=== PATIENT | female | born 1945 | race Caucasian/White ===

== ENCOUNTER → 2019-11-07 | Day surgery (SDC) | payer MEDICARE, OTHER ==
[2019-11-03 10:25] LABS: BASOPHILS # (AUTO) 0.1 (0.0-0.1); BASOPHILS % 1.4 % (0.0-1.0); EOSINOPHILS # (AUTO) 0.1 (0.0-0.4); EOSINOPHILS % 2.4 % (0.0-6.0); HEMOGLOBIN 13.5 g/dL (12.0-16.0); LYMPHOCYTES # (AUTO) 1.8 (1.0-3.2); LYMPHOCYTES % 34.9 % (18.0-39.1); MEAN CORPUSCULAR HEMOGLOBIN 29.3 pg (28-32); MEAN CORPUSCULAR HGB CONC 32.1 g/dL (31-35); MEAN CORPUSCULAR VOLUME 91.1 fL (81-99); MONOCYTES # (AUTO) 0.5 (0.2-0.8); MONOCYTES % 10.4 % (4.4-11.3); NEUTROPHILS # (AUTO) 2.5 (2.1-6.9); NEUTROPHILS % 50.5 % (38.7-80.0); PLATELET COUNT 249 x10e3/uL (140-360); RED BLOOD COUNT 4.61 x10e6/uL (3.6-5.1); RED CELL DISTRIBUTION WIDTH 14.3 % (11.7-14.4)
[2019-11-03 10:41] LABS: ALANINE AMINOTRANSFERASE 17 IU/L (0-55); ALBUMIN 3.8 g/dL (3.5-5.0); ALBUMIN/GLOBULIN RATIO 1.5 (0.8-2.0); ALKALINE PHOSPHATASE 100 IU/L (40-150); ANION GAP 11.4 mmol/L (8-16); BLOOD UREA NITROGEN 8 mg/dL (7-26); BUN/CREATININE RATIO 11 (6-25); CALCIUM 9.7 mg/dL (8.4-10.2); CARBON DIOXIDE 25 mmol/L (22-29); CHLORIDE 106 mmol/L (98-107); CREATININE, SERUM 0.76 mg/dL (0.57-1.11); EST GLOMERULAR FILTRATION RATE > 60 ML/MIN (60-); GLUCOSE 89 mg/dL (74-118); POTASSIUM 4.4 mmol/L (3.5-5.1); SODIUM 138 mmol/L (136-145)
--- NOTE | 2019-11-03 11:25 | Diagnostic Imaging Report ---
EXAMINATION: CHEST 2 VIEWS INDICATION: Pre-op. COMPARISON: None FINDINGS: TUBES and LINES: None. LUNGS: Lungs are well inflated. There is no evidence of pneumonia or pulmonary edema. Mild patchy bibasilar opacities, likely atelectasis. PLEURA: No pleural effusion or pneumothorax. HEART AND MEDIASTINUM: The cardiomediastinal silhouette is unremarkable. BONES AND SOFT TISSUES: No acute osseous abnormality. Bilateral breast implants. Mild degenerative changes of the visualized spine. Diffuse osteopenia. UPPER ABDOMEN: No free air under the diaphragm. IMPRESSION: No acute radiographic abnormality. Signed by: Dr. Ro Todd MD on 11/03/2019 11:22 AM
[~2019-11-07] MED LIST: ACETAMINOPHEN 1000 MG/100 ML IV ONE; BUPIVACAINE 0.5%/EPI 30 ML SDV INJ ONE; CEFAZOLIN SOD 1 GM/NS 50ML 100 ML IV ONE; DEXAMETHASONE SOD PHOS INJ 4 MG/ML VIAL ONE; ESTROGENS CONJUGATED VAGINAL CR 45 GM TUBE PV ONE; FENTANYL CITRATE/PF 100MCG/2 ML INJ ONE; GLYCOPYRROLATE INJ 0.2 MG/ML VIAL ONE; KETOROLAC TROMETHAMINE 30 MG/ML VIAL ONE; LIDOCAINE HCL 2% LOCAL INJ 5 ML SDV VIAL INJ ONE; LISINOPRIL10 MG PO; MIDAZOLAM HCL 2 MG/2 ML VIAL ONE; NEOSTIGMINE 1 MG/ML 10ML VIAL ONE; OMEPRAZOLE40 MG PO; ONDANSETRON HCL INJ 2MG/ML 2ML 2 MG/ML VIAL ONE; PROPOFOL IV EMULSION 10 MG/ML 20 ML VIAL ONE; ROCURONIUM BROMIDE 10 MG/ML 5ML VIAL ONE; SEVOFLURANE INHAL SOLN 250 ML PEN BTL ONE
[2019-11-07 11:30] VITALS: BP 110/63
--- OUTSIDE RECORDS SUMMARY | 2019-11-10 13:03 | XMS REPORT ---
Author Author [facility] Address Unknown Phone Unavailable Care Team Providers Care Service Coordinator Name Role Phone Zeus STEVENSON Unavailable Unavailable Problems This patient has no known problems. Allergies, Adverse Reactions, Alerts This patient has no known allergies or adverse reactions. Medications This patient has no known medications. Encounters Start Date/Time End Date/Time Encounter Type Admission Type Attending [facility] Care Facility Care Department Encounter ID 2019-04-08 19:30:00 2019-04-08 19:30:00 Outpatient [id number] Results Test Description Test Time Test Comments Text Results Atomic Results Result Comments CHEST 2 VIEWS 2019-11-03 11:19:00 [place] [id number] Patient Name: YARITZA TRIMBLE MR #: [id number] : 1945 Age/Sex: 74/F Req #: [id number] Adm Physician: Ordered by: MICHAEL STEVENSON MD Report #: [id number] Location: OR Room/Bed: Procedure: [id number] DX/CHEST 2 VIEWS Exam Date: 11/03/19 Exam Time: 1100 REPORT STATUS: Signed EXAMINATION: CHEST 2 VIEWS INDICATION: Pre-op. COMPARISON: None FINDINGS: TUBES and LINES: None. LUNGS: Lungs are well inflated. There is no evidence of pneumonia or pulmonary edema. Mild patchy bibasilar opacities, likely atelectasis. PLEURA: No pleural effusion or pneumothorax. HEART AND MEDIASTINUM: The cardiomediastinal silhouette is unremarkable. BONES AND SOFT TISSUES: No acute osseous abnormality. Bilateral breast implants. Mild degenerative changes of the visualized spine. Diffuse osteopenia. UPPER ABDOMEN: No free air under the diaphragm. IMPRESSION: No acute radiographic abnormality. Signed by: Dr. Hollis Bolivar MD on 11/03/2019 11:22 AM Dictated By: HOLLIS BOLIVAR MD 112 Transcribed By: JOSE on 11/03/191121 COPY TO: MICHAEL KEITA MD
--- NOTE | 2019-11-20 18:56 | Operative Report ---
DATE OF PROCEDURE: 11/07/2019 SURGEON: Nicole Payne MD (previously Nicole Jeong MD) [employer] OPERATOR: Ashley Westbrook MD PROCEDURE PERFORMED: Laparoscopic bilateral salpingo-oophorectomy. PREOPERATIVE DIAGNOSIS: Pelvic mass. POSTOPERATIVE DIAGNOSIS: Benign right ovarian cyst. ANESTHESIA: General. ESTIMATED BLOOD LOSS: 20 mL. COMPLICATIONS: None. FINDINGS: An approximately 7 cm right ovarian cyst was noted. Otherwise normal pelvic anatomy. INDICATIONS: The patient is a 74-year-old postmenopausal female with a pelvic mass requiring surgical diagnosis. PROCEDURE NOTE: Prior to the procedure, the risks, benefits, indications, and alternatives were discussed and the patient agreed to proceed. Following anesthesia, the patient was placed in the modified dorsal lithotomy position in Yellofin stirrups and prepping and draping was performed in typical sterile fashion. A time-out was done. HUMI was placed to manipulate the uterus and attention was then turned to the abdomen. Infraumbilical port site was identified and injected with solution of 0.25% Marcaine with epinephrine and a small vertical infraumbilical incision was made with a scalpel. A 5 mm trocar was placed at the umbilicus under direct visualization with the laparoscope. Survey of the abdomen and pelvis was done with findings noted above. Two additional ports were then placed in the patient's left and right lower quadrants, both were placed approximately 4 cm anterior and superior to the ASIS. Both were inserted atraumatically under with direct visualization with the laparoscope. The right fallopian tube and ovary were then held with a blunt retractor on gentle tension and serially excised using the LigaSure device to sequentially coagulate and cut at the isthmus of the fallopian tube, the utero-ovarian ligament and the infundibulopelvic ligament. The surgical sites were noted to be hemostatic. This technique was then repeated on the contralateral side with good hemostasis again noted. The umbilical port site was then enlarged in order to allow for an Ayo contained extraction system to be placed at this site. The bag was then introduced via this port and the specimens were placed within the bag. The cyst was ruptured within the bag. No spillage into the peritoneal cavity was noted. This was all done within the contained extraction system. The specimens were sent to the pathologist, who found that on frozen section that the cyst was benign. The umbilical port was then removed under direct visualization and the peritoneum and fascia were closed using the mass closure technique with 0 Vicryl suture. The pelvis was then irrigated and cleared of any debris. The remaining ports were removed under direct visualization. Abdomen was desufflated. All incisions were closed with 3-0 Monocryl in a subcuticular fashion and covered with Dermabond. All sponge, needle, instrument, and lap counts were correct at the end of the procedure. The patient was brought to the recovery room in stable condition having tolerated the procedure well. MD AUSTIN Squires/MODL /[id number] MTDLeoncio
== END | disposition home or self-care (01) ==
LOC: OR 05:10
PROVIDERS: ATTEND Obstetrics & Gynecology Obstetrics
DX: Q50.5 Embryonic cyst of broad ligament (principal); N73.6 Female pelvic peritoneal adhesions (postinfective); I10 Essential (primary) hypertension; F03.90 Unspecified dementia, unspecified severity, without behavioral disturbance, psychotic disturbance, mood disturbance, and anxiety; K21.9 Gastro-esophageal reflux disease without esophagitis; K59.00 Constipation, unspecified; Z01.810 Encounter for preprocedural cardiovascular examination; Z01.812 Encounter for preprocedural laboratory examination; Z01.818 Encounter for other preprocedural examination
CPT/HCPCS: 36415; 58661; 71046; 80053; 85025; 88112; 88302; 88305; 88307; 88329; 93005; C1758; J0131; J0690; J1100; J1885; J2001; J2250; J2405; J2704; J2710; J3010; 88331

== ENCOUNTER → 2021-03-04 | Outpatient (CLI) | payer MEDICARE, OTHER ==
[~2021-03-04] MED LIST changes: -ACETAMINOPHEN 1000 MG/100 ML IV ONE; -BUPIVACAINE 0.5%/EPI 30 ML SDV INJ ONE; -CEFAZOLIN SOD 1 GM/NS 50ML 100 ML IV ONE; -DEXAMETHASONE SOD PHOS INJ 4 MG/ML VIAL ONE; -ESTROGENS CONJUGATED VAGINAL CR 45 GM TUBE PV ONE; -FENTANYL CITRATE/PF 100MCG/2 ML INJ ONE; -GLYCOPYRROLATE INJ 0.2 MG/ML VIAL ONE; -KETOROLAC TROMETHAMINE 30 MG/ML VIAL ONE; -LIDOCAINE HCL 2% LOCAL INJ 5 ML SDV VIAL INJ ONE; -MIDAZOLAM HCL 2 MG/2 ML VIAL ONE; -NEOSTIGMINE 1 MG/ML 10ML VIAL ONE; -ONDANSETRON HCL INJ 2MG/ML 2ML 2 MG/ML VIAL ONE; -PROPOFOL IV EMULSION 10 MG/ML 20 ML VIAL ONE; -ROCURONIUM BROMIDE 10 MG/ML 5ML VIAL ONE; -SEVOFLURANE INHAL SOLN 250 ML PEN BTL ONE
== END ==
LOC: MRI 14:49
PROVIDERS: ATTEND Family Medicine
DX: M54.5 Low back pain (principal)
CPT/HCPCS: 72148

== ENCOUNTER → 2022-02-02 | Outpatient (CLI) | payer MEDICARE, OTHER | LOC: MRI 14:49 | PROVIDERS: ATTEND Family Medicine | DX: M25.551 Pain in right hip (principal) ==